=== PATIENT | male | born 1960 | race Caucasian/White ===

== ENCOUNTER 2016-10-12 05:04 | Emergency (ER) | payer MEDICAID ==
[2016-10-12] MEDS ORDERED: KETOROLAC 30 MG/ML VIAL ONE (06:55)
[2016-10-12] MEDS ORDERED: SODIUM CHLORIDE 0.9% 1,000 ML ONE (06:55)
== END 2016-10-12 08:17 | disposition home or self-care (01) ==
LOC: ER 05:04
CPT/HCPCS: 36415; 71020; 80053; 81003; 83690; 85025; 87804; 87880; 96361; 96374